=== PATIENT | male | born 1995 | race Caucasian/White ===

== ENCOUNTER 2017-09-19 07:02 | Emergency (ER) | payer OTHER ==
[2017-09-19] MEDS: KETOROLAC 60 MG/2 ML VIAL (J1885) IM (07:45)
[2017-09-19] MEDS: CYCLOBENZAPRINE 10 MG TAB PO (07:45)
== END 2017-09-19 08:11 | disposition home or self-care (01) ==
LOC: M ED 07:02
DX: Z04.1 Encounter for examination and observation following transport accident (principal); S39.012A Strain of muscle, fascia and tendon of lower back, initial encounter; V47.5XXA Car driver injured in collision with fixed or stationary object in traffic accident, initial encounter; Y92.410 Unspecified street and highway as the place of occurrence of the external cause; G47.00 Insomnia, unspecified; Z79.899 Other long term (current) drug therapy
CPT/HCPCS: J1885

== ENCOUNTER 2018-02-28 10:06 | Emergency (ER) | payer OTHER | END 2018-02-28 10:44 | disposition home or self-care (01) | LOC: M ED 10:06 | DX: S61.217A Laceration without foreign body of left little finger without damage to nail, initial encounter (principal); W26.0XXA Contact with knife, initial encounter; Y92.59 Other trade areas as the place of occurrence of the external cause; Y99.0 Civilian activity done for income or pay; F17.210 Nicotine dependence, cigarettes, uncomplicated | CPT/HCPCS: 99283 ==

== ENCOUNTER 2018-05-17 21:05 | Inpatient (IN) | payer OTHER ==
[2018-05-17 21:41] LABS: HEMATOCRIT 42.8 % (42.0-52.0); HEMOGLOBIN 14.4 g/dl (13.5-17.5); MEAN CORPUSCULAR HEMOGLOBIN 29.5 pg (27.0-33.0); MEAN CORPUSCULAR HGB CONC 33.6 g/dl (32.0-36.5); MEAN CORPUSCULAR VOLUME 87.7 fl (80.0-96.0); PLATELET COUNT, AUTOMATED 250 10^3/uL (150-450); RED BLOOD COUNT 4.88 10^6/uL (4.30-6.10); RED CELL DISTRIBUTION WIDTH 12.5 % (11.5-14.5); WHITE BLOOD COUNT 11.5 10^3/uL (4.0-10.0)
[2018-05-17] MEDS: NICOTINE 21MG/24HR 1 EA TRANSDERMAL TD (21:43)
[2018-05-17 22:25] LABS: ACETAMINOPHEN LEVEL < 2.0 UG/ML (10.0-30.0); ALBUMIN 3.9 GM/DL (3.2-5.2); ALBUMIN/GLOBULIN RATIO 1.18 (1.00-1.93); ALKALINE PHOSPHATASE 113 U/L (45-117); ALT/SGPT 32 U/L (12-78); ANION GAP 8 MEQ/L (8-16); AST/SGOT 25 U/L (7-37); BILIRUBIN,DIRECT < 0.1 MG/DL (0.0-0.2); BILIRUBIN,TOTAL 0.3 MG/DL (0.2-1.0); BLOOD UREA NITROGEN 15 MG/DL (7-18); CALCIUM LEVEL 9.1 MG/DL (8.5-10.1); CARBON DIOXIDE LEVEL 28 MEQ/L (21-32); CHLORIDE LEVEL 107 MEQ/L (98-107); CREATININE FOR GFR 1.14 MG/DL (0.70-1.30); ETHYL ALCOHOL (ETHANOL) < 0.003 % (0.000-0.010); GLUCOSE, FASTING 99 MG/DL (70-100); SALICYLATE LEVEL < 1.7 MG/DL (5.0-30.0); SODIUM LEVEL 143 MEQ/L (136-145); TOTAL PROTEIN 7.2 GM/DL (6.4-8.2)
[2018-05-17 22:36] LABS: AMPHETAMINES LEVEL URINE NEGATIVE (NEGATIVE); BARBITURATES URINE NEGATIVE (NEGATIVE); BENZODIAZEPINES URINE NEGATIVE (NEGATIVE); CANNABINOIDS URINE NEGATIVE (NEGATIVE); COCAINE METABOLITE URINE NEGATIVE (NEGATIVE); METHADONE URINE NEGATIVE (NEGATIVE); OPIATES URINE NEGATIVE (NEGATIVE); PHENCYCLIDINE URINE NEGATIVE (NEGATIVE)
[2018-05-18] MEDS: IBUPROFEN 600 MG TAB PO (13:03)
[2018-05-18] MEDS ORDERED: MOM 30ML SUSPENSION UDC PO (15:00)
[2018-05-18] MEDS ORDERED: ACETAMINOPHEN TAB 650MG DOSE (2X325MG) PO (15:00)
[2018-05-18] MEDS ORDERED: MAALOX 30 ML SUSP *UDC PO (15:00)
[2018-05-18] MEDS: traZODone 50 MG TAB PO (21:29)
[2018-05-18] MEDS: MELOXICAM (MOBIC) 7.5 MG TAB PO (21:29)
[2018-05-18] MEDS: NICOTINE 21MG/24HR 1 EA TRANSDERMAL TD (21:30)
[2018-05-19] MEDS: MELOXICAM (MOBIC) 7.5 MG TAB PO (09:00)
[2018-05-19] MEDS: ESCITALOPRAM OXALATE 5MG TABLET (LEXAPRO) PO (13:05)
[2018-05-19] MEDS: NICOTINE 21MG/24HR 1 EA TRANSDERMAL TD (21:00)
[2018-05-19] MEDS: traZODone 50 MG TAB PO (21:01)
[2018-05-20 07:15] LABS: HEMATOCRIT 42.9 % (42.0-52.0); HEMOGLOBIN 14.3 g/dl (13.5-17.5); MEAN CORPUSCULAR HEMOGLOBIN 29.4 pg (27.0-33.0); MEAN CORPUSCULAR HGB CONC 33.3 g/dl (32.0-36.5); MEAN CORPUSCULAR VOLUME 88.3 fl (80.0-96.0); PLATELET COUNT, AUTOMATED 235 10^3/uL (150-450); RED BLOOD COUNT 4.86 10^6/uL (4.30-6.10); RED CELL DISTRIBUTION WIDTH 12.7 % (11.5-14.5); WHITE BLOOD COUNT 9.3 10^3/uL (4.0-10.0)
[2018-05-20] MEDS: ESCITALOPRAM OXALATE 5MG TABLET (LEXAPRO) PO (10:10)
[2018-05-20] MEDS: MELOXICAM (MOBIC) 7.5 MG TAB PO (10:10)
[2018-05-20] MEDS: NICOTINE 21MG/24HR 1 EA TRANSDERMAL TD (10:13)
[2018-05-20] MEDS ORDERED: LIDOCAINE 5% (LIDODERM) PATCH As Ordered (17:55)
[2018-05-20] MEDS: traZODone 50 MG TAB PO (21:42)
[2018-05-21] MEDS: ESCITALOPRAM OXALATE 10 MG TAB (LEXAPRO) PO (09:30)
[2018-05-21] MEDS: MELOXICAM (MOBIC) 7.5 MG TAB PO (09:30)
[2018-05-21] MEDS: NICOTINE 21MG/24HR 1 EA TRANSDERMAL TD (09:32)
[2018-05-21] MEDS: traZODone 50 MG TAB PO (22:38)
[2018-05-22] MEDS ORDERED: ESCITALOPRAM OXALATE 10 MG TAB (LEXAPRO) PO (09:00)
[2018-05-22] MEDS: NICOTINE 21MG/24HR 1 EA TRANSDERMAL TD (09:18)
[2018-05-22] MEDS: ESCITALOPRAM OXALATE 10 MG TAB (LEXAPRO) PO (09:18)
[2018-05-22] MEDS: MELOXICAM (MOBIC) 7.5 MG TAB PO (09:18)
[2018-05-22] MEDS: hydrOXYzine 25 MG TAB PO ×2 (11:45→19:27)
[2018-05-22] MEDS: traZODone 50 MG TAB PO (22:15)
[2018-05-23] MEDS: NICOTINE 21MG/24HR 1 EA TRANSDERMAL TD (08:10)
[2018-05-23] MEDS: ESCITALOPRAM OXALATE 10 MG TAB (LEXAPRO) PO (08:10)
[2018-05-23] MEDS: MELOXICAM (MOBIC) 7.5 MG TAB PO (08:10)
[2018-05-23] MEDS: hydrOXYzine 25 MG TAB PO ×2 (15:05→21:35)
[2018-05-23] MEDS: traZODone 50 MG TAB PO (21:35)
[2018-05-23] MEDS ORDERED: OLANZapine ORAL DISINTEGRATING TAB 5MG PO (22:45)
[2018-05-24] MEDS: ESCITALOPRAM OXALATE 10 MG TAB (LEXAPRO) PO (08:23)
[2018-05-24] MEDS: NICOTINE 21MG/24HR 1 EA TRANSDERMAL TD (08:23)
[2018-05-24] MEDS: MELOXICAM (MOBIC) 7.5 MG TAB PO (08:24)
[2018-05-24] MEDS: hydrOXYzine 50 MG TAB PO ×2 (14:23→20:37)
[2018-05-24] MEDS: traZODone 50 MG TAB PO (20:37)
[2018-05-25] MEDS: MELOXICAM (MOBIC) 7.5 MG TAB PO (09:00)
[2018-05-25] MEDS: NICOTINE 21MG/24HR 1 EA TRANSDERMAL TD (09:00)
[2018-05-25] MEDS: ESCITALOPRAM OXALATE 10 MG TAB (LEXAPRO) PO (09:46)
[2018-05-25] MEDS: PROPRANOLOL 10 MG TAB PO ×3 (12:18→21:49)
[2018-05-25] MEDS: traZODone 50 MG TAB PO (21:49)
[2018-05-25] MEDS: hydrOXYzine 50 MG TAB PO (21:49)
[2018-05-26] MEDS: NICOTINE 21MG/24HR 1 EA TRANSDERMAL TD (08:50)
[2018-05-26] MEDS: MELOXICAM (MOBIC) 7.5 MG TAB PO (08:50)
[2018-05-26] MEDS: ESCITALOPRAM OXALATE 10 MG TAB (LEXAPRO) PO (08:51)
[2018-05-26] MEDS: PROPRANOLOL 10 MG TAB PO (08:51)
== END 2018-05-26 09:45 | disposition home or self-care (01) | DRG 885 ==
LOC: M ED 21:05 → M ED INP 05-18 14:55 → M PSY 05-18 16:04
DX: F33.2 Major depressive disorder, recurrent severe without psychotic features (principal); F10.10 Alcohol abuse, uncomplicated; F41.1 Generalized anxiety disorder; M25.551 Pain in right hip; M25.561 Pain in right knee; G47.00 Insomnia, unspecified; F17.210 Nicotine dependence, cigarettes, uncomplicated; Z79.1 Long term (current) use of non-steroidal anti-inflammatories (NSAID); Z91.5 Personal history of self-harm; Z81.8 Family history of other mental and behavioral disorders

== ENCOUNTER 2018-07-29 19:06 | Emergency (ER) | payer OTHER ==
[~2018-07-29] VITALS: Ht 190.5 cm; Wt 96.8 kg
[~2018-07-29 19:06] MED LIST: AMBI5TAB PO; CYCL10TA PO; ESCI10TA2 PO; HYDRO50TAB PO; KEFL500C17 PO; KETO10TAB PO; MELO15TA28 PO; TRAZO50TA PO
[2018-07-29] MEDS ORDERED: BUPR150T3 PO (19:20)
[2018-07-29] MEDS ORDERED: TRAZ1TAB14 PO (19:20)
[2018-07-29 20:34] LABS: BASO # 0.1 10^3/uL (0.0-0.2); BASO % 0.5 % (0.0-1.0); EOS # 0.3 10^3/uL (0.0-0.50); EOS % 2.5 % (0.0-3.0); HEMATOCRIT 46.6 % (42.0-52.0); HEMOGLOBIN 15.8 g/dl (13.5-17.5); LYMPH % 29.4 % (24.0-44.0); MEAN CORPUSCULAR HGB CONC 33.9 g/dl (32.0-36.5); MEAN CORPUSCULAR VOLUME 88.6 fl (80.0-96.0); MONO % 9.4 % (0.0-5.0); NEUTROPHILS # 5.9 10^3/uL (1.8-7.7); NEUTROPHILS % 57.8 % (36.0-66.0); PLATELET COUNT, AUTOMATED 250 10^3/uL (150-450); RED BLOOD COUNT 5.26 10^6/uL (4.30-6.10); WHITE BLOOD COUNT 10.1 10^3/uL (4.0-10.0)
[2018-07-29 21:00] LABS: ALBUMIN 4.1 GM/DL (3.2-5.2); ALT/SGPT 25 U/L (12-78); BILIRUBIN,DIRECT 0.1 MG/DL (0.0-0.2); BILIRUBIN,TOTAL 0.3 MG/DL (0.2-1.0); BLOOD UREA NITROGEN 16 MG/DL (7-18); CALCIUM LEVEL 8.6 MG/DL (8.5-10.1); CARBON DIOXIDE LEVEL 24 MEQ/L (21-32); CHLORIDE LEVEL 105 MEQ/L (98-107); CK-MB VALUE MASS < 1.0 NG/ML (<3.6); CPK CREATINE PHOSPHOKINASE 158 U/L (39-308); CREATININE FOR GFR 1.03 MG/DL (0.70-1.30); GLOMERULAR FILTRATION RATE > 60.0 (>60); GLUCOSE, FASTING 78 MG/DL (70-100); MB/CK RELATIVE INDEX 0.63 (< OR =4); POTASSIUM SERUM 3.3 MEQ/L (3.5-5.1); SODIUM LEVEL 140 MEQ/L (136-145); TOTAL PROTEIN 7.3 GM/DL (6.4-8.2); TROPONIN I < 0.02 NG/ML (< 0.10)
[2018-07-29] MEDS ORDERED: ISOVUE-370 76% 100ML VIAL (Q9967) As Ordered ONE (21:53)
--- NOTE | 2018-07-29 23:06 | REPVR ---
EXAM: CT Angiography Chest With Contrast EXAM DATE/TIME: 07/29/2018 10:11 PM CLINICAL HISTORY: 23 years old, male; Pain; Chest pain; Additional info: Chest pain/sob TECHNIQUE: Axial computed tomographic angiography images of the chest with intravenous contrast using CT angiography protocol. All CT scans at this facility use at least one of these dose optimization techniques: automated exposure control; mA and/or kV adjustment per patient size (includes targeted exams where dose is matched to clinical indication); or iterative reconstruction. Coronal and sagittal reformatted images were created and reviewed. MIP reconstructed images were created and reviewed. CONTRAST: 100 ml of ISOVUE 370 administered intravenously. COMPARISON: No relevant prior studies available. FINDINGS: Pulmonary arteries: There is opacification the pulmonary arteries with no evidence of pulmonary embolus. Aorta: There is opacification of the aorta and the aorta appears intact. Lungs: The lungs appear clear. Pleural space: There is no evidence of pneumothorax. There is no evidence of pleural effusion. Heart: The heart is top normal in size and there is no pericardial effusion. Mediastinum: Normal appearing trachea. Lymph nodes: There are small subcarinal lymph nodes. Bones/joints: The thoracic vertebra appear in alignment. Soft tissues: Unremarkable. IMPRESSION: No evidence of pulmonary embolus. Electronically signed by: Jefry Durand On 07/29/2018 23:06:07 PM
--- NOTE | 2018-07-29 23:14 | REPVR ---
EXAM: CT Abdomen and Pelvis With Contrast EXAM DATE/TIME: 07/29/2018 10:11 PM CLINICAL HISTORY: 23 years old, male; Pain; Abdominal pain; Generalized; Additional info: Chest pain/sob TECHNIQUE: Axial computed tomography images of the abdomen and pelvis with intravenous contrast. All CT scans at this facility use at least one of these dose optimization techniques: automated exposure control; mA and/or kV adjustment per patient size (includes targeted exams where dose is matched to clinical indication); or iterative reconstruction. Coronal and sagittal reformatted images were created and reviewed. CONTRAST: 100 ml of ISOVUE 370 administered intravenously. COMPARISON: No relevant prior studies available. FINDINGS: ABDOMEN: Liver: Normal-appearing liver. Gallbladder and bile ducts: Normal gallbladder. Normal common bile duct. Pancreas: Normal pancreas. Spleen: Normal spleen. Adrenals: Normal adrenal glands. Kidneys and ureters: There is enhancement of both kidneys. There is no evidence of a stone in the path of the right or left ureter. Stomach and bowel: The cecum is in the right pelvis. There is thickening of the bowel wall of the transverse colon a length of approximately 10 CM. This would be suspicious for a focal area of colitis. This could be the result of inflammatory or infectious colitis. Pseudomembranous colitis another consideration. There are secretions in loops of small bowel and mild thickening of the jejunum. Scattered air-fluid levels present. This may be the result of ileus versus enteritis. Appendix: The appendix appears within the range of normal. PELVIS: Bladder: The urinary bladder is empty and cannot be evaluated. Reproductive: Prostate is normal in size. ABDOMEN and PELVIS: Intraperitoneal space: There is no evidence of pneumoperitoneum. Bones/joints: There is no evidence of bony abnormality. Soft tissues: Unremarkable. Vasculature: There is opacification of the aorta which appears normal in size. Lymph nodes: Normal. No enlarged lymph nodes. IMPRESSION: 1. Thickening of a 10 cm length of transverse colon suspicious for focal colitis. Considerations would include inflammatory colitis, infectious colitis and pseudomembranous. 2. Secretions throughout the small bowel with scattered air-fluid levels may be ileus or changes of enteritis. Electronically signed by: Jefry Durand On 07/29/2018 23:14:41 PM
[2018-07-29] MEDS ORDERED: CIPR-249 PO (23:45)
[2018-07-29] MEDS ORDERED: FLAG500T PO (23:45)
[2018-07-29] MEDS ORDERED: ONDA4TAB6 PO (23:52)
[2018-07-30] MEDS ORDERED: CIPROFLOXACIN 500 MG TAB PO ONE
[2018-07-30] MEDS ORDERED: metroNIDAZOLE (FLAGYL) 500 MG TAB PO ONE
[2018-07-30 00:02] VITALS: BP 122/67
--- NOTE | 2018-07-30 08:03 | ECGEPIP ---
Stationary ECG Study [facility] - ED Test Date: 2018-07-29 Pat Name: DESIREE OAKES Department: Room: - Gender: M Staff Electrical Engineer: : 1995 Requested By: MERVIN CRUZ PA-C Order Number: [id number] Reading MD: Jamie Matthew Measurements Intervals [place] Rate: 75 P: 58 DE: 153 QRS: 44 QRSD: 107 T: 30 QT: 370 QTc: 414 Interpretive Statements SINUS RHYTHM WITH MARKED SINUS ARRHYTHMIA BENIGN EARLY REPOLARIZATION SIMILAR TO 05/17/18 Electronically Signed On 07-30-2018 8:03:45 EST by Jamie Matthew
--- NOTE | 2018-07-31 08:10 | ED PDOC ---
Post-Departure Follow-Up jose morillo faxed formal report of ct abd/p for fu Cisco Oneill MD Jul 31, 2018 08:10
== END 2018-07-30 00:04 | disposition home or self-care (01) ==
LOC: M ED 19:06
DX: K52.9 Noninfective gastroenteritis and colitis, unspecified (principal)
CPT/HCPCS: 71275; 74177; 80048; 80076; 82550; 82553; 84484; 85025; 93005; 99284; Q9967

== ENCOUNTER 2018-11-18 12:31 | Emergency (ER) | payer OTHER ==
[~2018-11-18] VITALS: Ht 190.5 cm; Wt 102.7 kg
[~2018-11-18 12:31] MED LIST changes: +BUPR150T3 PO; +CIPR-249 PO; +FLAG500T PO; +ONDA4TAB6 PO; +TRAZ1TAB14 PO
--- NOTE | 2018-11-18 14:56 | REP ---
ULTRASOUND XIPHOID PROCESS SOFT TISSUES: Real-time sonographic evaluation of the xiphoid process and surrounding soft tissues performed. Reportedly, there is a palpable abnormality present, for the past few months according to the patient. Real-time sonographic evaluation demonstrates no cystic or solid mass. No fluid collection is seen. Visualized structures appear unremarkable. IMPRESSION: No evidence of mass or fluid collection in the region of the xiphoid process. Electronically Signed by Rodolfo Morales MD 11/18/2018 04:09 P
[2018-11-18] MEDS ORDERED: IBUP-1022 PO (15:13)
[2018-11-18 15:17] VITALS: BP 134/74
== END 2018-11-18 15:19 | disposition home or self-care (01) ==
LOC: M ED 12:31
DX: R07.9 Chest pain, unspecified (principal); M79.9 Soft tissue disorder, unspecified; Z79.899 Other long term (current) drug therapy

== ENCOUNTER → 2018-11-20 | Outpatient (CLI) | payer OTHER ==
[~2018-11-20] MED LIST changes: +IBUP-1022 PO
--- NOTE | 2018-11-20 18:24 | REP ---
MRI study of the anterior chest wall without contrast: History: Swelling or mass. Sternal pain and tenderness to palpation. Nonspecific lesion on ultrasound anterior-superior midline abdominal wall. 5 cm diameter mildly tender mass of the sternum. Comparison is made with CT study of the chest and abdomen from July 29, 2018. Technique: Two skin markers are affixed to the skin. Axial coronal and sagittal imaging planes utilized. T1 and T2-weighted sequences are included. Cortical and medullary bone signal intensity is normal in the visualized sternum and xyphoid process is unremarkable. Subxyphoid an anterior pre sternal fat is homogeneous. No mass lesion is seen. Visualized costal cartilages and muscle attachments are normal. No liver mass lesion is seen in the underlying left lobe of the liver. No fluid collection is seen. Impression: Negative sternal and chest wall MRI study. No mass lesion, cyst, or fluid collection is appreciated. Electronically Signed by Sha Prakash MD 11/20/2018 08:11 P
== END ==
LOC: M PLARAD 14:13
PROVIDERS: ATTEND Physician Assistant
DX: R22.2 Localized swelling, mass and lump, trunk (principal)

== ENCOUNTER 2019-02-13 23:31 | Emergency (ER) | payer OTHER ==
[~2019-02-13] VITALS: Ht 190.5 cm; Wt 95.5 kg
[~2019-02-13 23:31] MED LIST changes: +HYDR1TAB33 PO; -HYDRO50TAB PO; +TRAZ1TAB10 PO; -TRAZO50TA PO
[2019-02-14] MEDS ORDERED: PENICILLIN V POTASSIUM 500 MG TAB PO ONE (01:00)
[2019-02-14] MEDS ORDERED: PERCOCET 5MG/325MG TAB PO ONE (01:00)
[2019-02-14] MEDS ORDERED: LIDO1SOL8 PO (01:15)
[2019-02-14] MEDS ORDERED: PENI500T PO (01:15)
[2019-02-14] MEDS ORDERED: PERC5TAB12 PO ×2 (01:15→14:34)
[2019-02-14] MEDS ORDERED: CHLO0.124 MT (01:15)
[2019-02-14] MEDS: LIDOCAINE VISCOUS 2% SOLN 15ML UDC SS ONE ×2 (01:18→01:46)
[2019-02-14 01:41] VITALS: BP 151/90
== END 2019-02-14 01:43 | disposition home or self-care (01) ==
LOC: M ED 23:31
DX: G89.18 Other acute postprocedural pain (principal); Z98.818 Other dental procedure status